=== PATIENT | male | born 1945 | race Caucasian/White ===

== ENCOUNTER 2016-12-05 14:38 | Emergency (ER) | payer OTHER ==
[2016-12-05 15:02] VITALS: TEMP 97.9; BMI 29.5
--- NOTE | 2016-12-05 15:14 | PDOC ---
History of Present Illness - General Chief Complaint: Pain, Acute Stated Complaint: PAIN Time Seen by Provider: 12/05/16 15:12 History Source: Patient Exam Limitations: No Limitations - History of Present Illness Initial Comments: 71 yo M history HL, PVD presents with L lower leg pain. Abrupt onset, occurred while he was working on plumbing under his sink. He notes the pain is worse when he dorsiflexes his left foot. He has a history of a stent to the L superficial femoral artery, has occluded once before, requiring a replacement. He takes baby aspirin daily, no other daily anticoagulation. Past History - Past Medical History Allergies/Adverse Reactions: Allergies Allergy/AdvReac Type Severity Reaction Status Date / Time No Known Allergies Allergy Verified 12/05/16 14:44 Diabetes: Yes (PRE.) Hypercholesterolemia: Yes - Surgical History Cardiac Surgery: Yes (LT FEMORAL STENT X 2.) - Psycho/Social/Smoking Cessation Hx Anxiety: No Suicidal Ideation: No Smoking History: Never smoked Hx Alcohol Use: Yes Drug/Substance Use Hx: No Substance Use Type: Alcohol Review of Systems - Review of Systems Able to Perform ROS?: Yes Comments:: GENERAL/CONSTITUTIONAL: No fever or chills. No weakness. HEAD, EYES, EARS, NOSE AND THROAT: No change in vision. No ear pain or discharge. No sore throat. CARDIOVASCULAR: No chest pain or shortness of breath. RESPIRATORY: No cough, wheezing, or hemoptysis. GASTROINTESTINAL: No nausea, vomiting, diarrhea or constipation. GENITOURINARY: No dysuria, frequency, or change in urination. MUSCULOSKELETAL: +Pain to L mortensen, worse with movement of foot. No muscle swelling. No neck or back pain. SKIN: No rash NEUROLOGIC: No headache, vertigo, loss of consciousness, or change in strength/ sensation. ENDOCRINE: No increased thirst. No abnormal weight change. HEMATOLOGIC/LYMPHATIC: No anemia, easy bleeding. +History of blood clot to L lower extremity. ALLERGIC/IMMUNOLOGIC: No hives or skin allergy. *Physical Exam - Vital Signs Last Vital Signs Temp Pulse Resp BP Pulse Ox 97.9 F 72 18 166/61 97 12/05/16 14:44 12/05/16 14:44 12/05/16 14:44 12/05/16 14:44 12/05/16 14:44 - Physical Exam Comments: GENERAL: Awake, alert, and fully oriented, in no acute distress HEAD: No signs of trauma EYES: PERRLA, EOMI, sclera anicteric, conjunctiva clear ENT: Auricles normal inspection, hearing grossly normal, nares patent, oropharynx clear without exudates. Moist mucosa NECK: Normal ROM, supple, no lymphadenopathy, JVD, or masses LUNGS: Breath sounds equal, clear to auscultation bilaterally. No wheezes, and no crackles HEART: Regular rate and rhythm, normal S1 and S2, no murmurs, rubs or gallops ABDOMEN: Soft, nontender, normoactive bowel sounds. No guarding, no rebound. No masses EXTREMITIES: L foot slightly cooler than R foot. +Faint L DP pulse. Pain elicited on dorsiflexion of the L foot, with mild tenderness of the L tibialis anterior muscle. L foot cap refill 3 seconds. Remainder of extremities with normal range of motion, no edema. No clubbing or cyanosis. No cords, erythema, or tenderness NEUROLOGICAL: Cranial nerves II through XII grossly intact. Normal speech. Motor and sensation intact. Gait not tested due to nature of complaint. SKIN: Warm, Dry, normal turgor, no rashes or lesions noted. Medical Decision Making - Medical Decision Making 12/05/16 15:34 D/w TAVO Chen at Dr. Samson's office. Will obtain dopplers to evaluate patency of the stent. 12/05/16 17:01 Called by ultrasound- stent is occluded. Case discussed with TAVO Chen, patient will be evaluated by the vascular fellow for Dr. Samson in the ED at [facility]. I will start heparin drip while awaiting EMS pickup. *DC/Admit/Observation/Transfer Diagnosis at time of Disposition: Arterial occlusion, lower extremity - Discharge Dispostion Disposition: TRANSFER ACUTE CARE/OTHER HOSP Condition at time of disposition: Guarded Admit: No - Referrals Referrals: José Luis Berkowitz MD [Primary Care Provider] - - Transfer to Acute Care Facility Receiving Facility: [facility] Accepting Physician:: Dr. Samson
[2016-12-05] MEDS ORDERED: HEPARIN NA (PORCINE) 5,000 UNITS/ML 1ML VIAL IVPUSH PRN (16:56)
[2016-12-05] MEDS ORDERED: HEPARIN INFUSION - 500 ML IVPB SCH (17:00)
[2016-12-05] MEDS ORDERED: HEPARIN NA (PORCINE) 5,000 UNITS/ML 1ML VIAL ONE (17:09)
[2016-12-05] MEDS ORDERED: HEPARIN INFUSION - 500 ML IVPB ONE (17:10)
[2016-12-05 17:18] LABS: BASOPHIL 0.6 % (0-2.0); EOSINOPHIL 0.2 % (0-4.5); MCH 29.3 pg (25.7-33.7); MCHC 33.6 g/dl (32.0-35.9); MEAN CELL VOLUME 87.3 fl (80-96); NEUTROPHILS 86.7 % (42.8-82.8); PLATELET COUNT 277 K/MM3 (134-434); RDW 13.5 % (11.9-15.9); WHITE BLOOD COUNT 19.1 K/mm3 (4.0-10.0)
[2016-12-05 17:33] LABS: INR 1.04 (0.82-1.09); PROTHROMBIN TIME (PATIENT) 11.5 SEC (9.98-11.88)
[2016-12-05 17:35] LABS: ACTIVATED PTT 28.3 SECONDS (26.9-34.4)
[2016-12-05 19:28] VITALS: BP 112/64; PULSE 72
[2016-12-05 19:52] LABS: ALBUMIN 4.2 g/dl (3.4-5.0); ALK PHOS 45 U/L (45-117); ANION GAP 16 (8-16); BILIRUBIN,TOTAL 0.3 mg/dL (0.2-1.0); CALCIUM 9.3 mg/dL (8.5-10.1); CO2 21 mmol/L (21-32); CREATININE 0.8 mg/dL (0.7-1.3); GLUCOSE,RANDOM 114 mg/dL (74-106); SGOT/AST 39 U/L (15-37); SGPT/ALT 49 U/L (12-78); TOT PROT 7.2 g/dl (6.4-8.2)
--- NOTE | 2016-12-07 11:52 | EKG ---
Test Reason : Blood Pressure : / mmHG Vent. Rate : 069 BPM Atrial Rate : 069 BPM P-R Int : 152 ms QRS Dur : 098 ms QT Int : 406 ms P-R-T Axes : 019 010 033 degrees QTc Int : 435 ms NORMAL SINUS RHYTHM INCOMPLETE RBBB NO PREVIOUS ECGS AVAILABLE Confirmed by SOPHIA PALMER MD ([id number]) on 12/07/2016 11:52:13 AM Referred By: Confirmed By:SOPHIA PALMER MD
== END 2016-12-05 19:28 | disposition short-term general hospital (02) ==
LOC: JER 14:38
DX: I74.8 Embolism and thrombosis of other arteries (principal); Z95.5 Presence of coronary angioplasty implant and graft; E78.00 Pure hypercholesterolemia, unspecified; Z79.82 Long term (current) use of aspirin
CPT/HCPCS: 36415; 80053; 85025; 85610; 85730; 93005; 93010; 93925-TC; 93971-TC; 99283-25; J1644

== ENCOUNTER 2021-08-28 13:55 | Emergency (ER) | payer OTHER ==
[2021-08-28 14:19] VITALS: BP 122/55; PULSE 73; TEMP 99; BMI 28.0
== END 2021-08-28 16:00 | disposition home or self-care (01) ==
LOC: FER 13:55
DX: R05.1 Acute cough (principal)
CPT/HCPCS: 71046-TC-FY; 87804; 99284-25; C9803; U0003; U0005